=== PATIENT | male | born 1950 | race Caucasian/White ===

== ENCOUNTER 2016-12-08 06:20 | Emergency (ER) | payer OTHER ==
[~2016-12-08] VITALS: Ht 172.7 cm; Wt 106.6 kg
[~2016-12-08 06:20] MED LIST: AMOXICILLIN500 M2 PO; ASPIRIN EC81 M1 PO; ATORVASTATIN CA80 M1 PO; LEVOTHYROXINE200 MC1 PO; LIOTHYRONINE SO5 MC1 PO; LORAZEPAM1 M1 PO; METFORMIN HCL500 M4 PO; METOPROLOL TART25 M1 PO; NORVASC2.5 M1 PO; NORVASC5 M1 PO; SERTRALINE HCL25 MG PO; VALACYCLOVIR500 M1 PO; VIAGRA100 M1 PO; VITAMIN C1000 M4 PO; VITAMIN D1000 UNIT PO
--- NOTE | 2016-12-08 06:41 | ED GI/GU/ABDOMINAL COMPLAINT ---
History of Present Illness General Chief Complaint: Abdominal Pain/Flank Pain Stated Complaint: "I THINK I MIGHT BE HAVING KIDNEY STONE" Source: patient, old records Exam Limitations: no limitations Vital Signs & Intake/Output Vital Signs & Intake/Output Vital Signs Date Time Temp Pulse Resp B/P Pulse O2 O2 Flow FiO2 Ox Delivery Rate 12/08 0902 98.0 82 18 134/73 97 Room Air 12/08 0631 98 Room Air 12/08 0626 97.9 80 18 153/92 98 Room Air Allergies Coded Allergies: niacin (RASH, HIVES ALL OVER BACK 03/18/16) Triage Note: PT FROM HOME C/O LEFT SIDED FLANK PAIN. PT STATES " JOSE ELIAS HAD KIDNEY STONES IN THE PAST AND I BELIEVE I AM HAVING THEM NOW. THE PAIN STARTED AT 2300 LAST NIGHT AND HAS BEEN A CONSTANT LEFT SIDED SHARP STABBING PAIN, I GOT NO SLEEP." PT IS NAUSEOUS, -VOMITTING -DIRRAREHA Triage Nurses Notes Reviewed? yes HPI: PT PRESENTS WITH LEFT FLANK PAIN RADIATING TO HIS GROIN THAT STARTED LAST NIGHT. THE PAIN IS COLIKY IN NATURE AND CONSTANT. 10 OUT OF 10. POSITIVE NAUSEA. NO AGGRIVAING OR MITIGATING FACTORS. SIMILAR SYMPTOMS IN THE PAST FROM KIDNEY STONES. PT CAN NOT FIND A POSITION OF COMFORT. (DERRICK SHER,SU Villarreal) Reconcile Medications Amlodipine Besylate (Norvasc) 5 MG TABLET 1 TAB PO DAILY BP (Reported) Amoxicillin 500 MG CAPSULE 4 CAP PO AD PRN PRIOR TO DENTAL APPT (Reported) Aspirin (Ecotrin*) 81 MG TABLET.DR 1 TAB PO BID HEART/BLOOD (Reported) Atorvastatin Calcium 80 MG TABLET 1 TAB PO DAILY CHOLESTEROL (Reported) Cholecalciferol (Vitamin D3) (Vitamin D) 1,000 UNIT TABLET 1 TAB PO DAILY SUPPLEMENT (Reported) Levothyroxine Sodium 200 MCG TABLET 1 TAB PO DAILY AC THYROID (Reported) Lorazepam 1 MG TABLET 1 TAB PO QHS SLEEP (Reported) Metformin HCl (Metformin HCl ER) 500 MG TAB.ER.24H 1 TAB PO DAILY PRE-DIABETES (Reported) Metoprolol Tartrate 25 MG TABLET 1 TAB PO BID HEART/BP (Reported) Sertraline HCl 25 MG TABLET 1 TAB PO DAILY MENTAL HEALTH (Reported) Valacyclovir HCl (Valacyclovir) 500 MG TABLET 1 TAB PO DAILY COLD SORES ( Reported) (CAITIE SHER,SAVAGE) Past History Travel History Traveled to [place] past 21 day No Medical History Any Pertinent Medical History? see below for history Neurological: NONE EENT: NONE Cardiovascular: hypertension, hyperlipidemia Respiratory: NONE Gastrointestinal: NONE Hepatic: NONE Renal: KIDNEY STONES Musculoskeletal: NONE Psychiatric: NONE Endocrine: hypothyroidism Blood Disorders: NONE Cancer(s): NONE Surgical History Surgical History: non-contributory Psychosocial History What is your primary language Moh[place] Tobacco Use: Never used ETOH Use: denies use Illicit Drug Use: denies illicit drug use Family History Hx Contributory? No (DERRICK SHER,SU Villarreal) Review of Systems Review of Systems Constitutional: Reports: no symptoms. EENTM: Reports: no symptoms. Respiratory: Reports: no symptoms. Cardiovascular: Reports: no symptoms. GI: Reports: no symptoms. Genitourinary: Reports: no symptoms. Musculoskeletal: Reports: see HPI, back pain. Skin: Reports: no symptoms. Neurological/Psychological: Reports: no symptoms. Hematologic/Endocrine: Reports: no symptoms. Immunologic/Allergic: Reports: no symptoms. All Other Systems: Reviewed and Negative (DERRICK SHER,SU Villarreal) Physical Exam Physical Exam General Appearance: well developed/nourished, alert, awake, anxious, severe distress Head: atraumatic, normal appearance Eyes: Bilateral: PERRL, EOMI. Ears, Nose, Throat, Mouth: hearing grossly normal Neck: normal inspection, supple, full range of motion Respiratory: normal breath sounds, chest non-tender, no respiratory distress, lungs clear Cardiovascular: regular rate/rhythm, normal peripheral pulses Gastrointestinal: normal bowel sounds, soft, no organomegaly, tenderness (LLQ) Back: CVA tenderness (L) Extremities: normal range of motion Neurologic/Psych: no motor/sensory deficits, awake, alert, oriented x 3, normal gait, normal mood/affect Skin: intact, normal color, warm/dry Core Measures ACS in differential dx? No Severe Sepsis Present: No Septic Shock Present: No (SU MEZA MD) Progress Differential Diagnosis: ureterolithiasis, urinary retention Plan of Care: Orders Procedure Date/time Status URINALYSIS 12/08 06 Complete COMPREHENSIVE METABOLIC PANEL 12/08 06 Complete CBC WITHOUT DIFFERENTIAL 12/08 634 Complete Laboratory Tests 12/08/16 0724: Urinalysis LIGHT H, Urine Color YEL, Urine Clarity CLEAR, Urine pH 6.0, Ur Specific [place] 1.025, Urine Protein NEG, Urine Ketones NEG, Urine Nitrite NEG, Urine Bilirubin NEG, Urine Urobilinogen 0.2, Ur Leukocyte Esterase NEG, Ur Microscopic SEDIMENT EXAMINED, Urine RBC 10-15 H, Urine WBC 1-3 H, Urine Mucus FEW, Urine Hemoglobin LARGE H, Urine Glucose NEG 12/08/16 0645: Anion Gap 13, Estimated GFR > 60, BUN/Creatinine Ratio 21.4, Glucose 116 H, Calcium 9.8, Total Bilirubin 1.0, AST 21, ALT 26, Alkaline Phosphatase 107, Total Protein 7.4, Albumin 4.5, Globulin 2.9, Albumin/Globulin Ratio 1.6, CBC w Diff NO MAN DIFF REQ, RBC 4.91, MCV 89.2, MCH 30.6, RDW 13.0, MPV 7.5, Gran % 78.1 H, Lymphocytes % 13.9 L, Monocytes % 6.8, Eosinophils % 0.7, Basophils % 0.5, Absolute Granulocytes 7.8 H, Absolute Lymphocytes 1.4, Absolute Monocytes 0.7 H, Absolute Eosinophils 0.1, Absolute Basophils 0, PUBS MCHC 34.3 Initial ED EKG: none Hand-Off Endorsed To: SAVAGE BLOOD MD Endorsed Time: 0700 Pending: CT, labs (DERRICK SHER,SU Villarreal) Diagnostic Imaging: Viewed by Me: CT Scan. Discussed w/RAD: CT Scan. Radiology Impression: 1. Minimal left-sided hydroureteronephrosis with a tiny left ureterovesicular junction stone. 2. Otherwise there is no evidence of urolithiasis. 3. Small hepatic and renal cysts. 4. Cholelithiasis versus hyperdense sludge. 5. Mild splenomegaly. 6. Moderately enlarged prostate. (SAVAGE BLOOD MD) Departure Departure Disposition: HOME OR SELF CARE Condition: Stable Departure Forms: Customer Survey General Discharge Information (SU MEZA MD) Departure Time of Disposition: 914 Clinical Impression Primary Impression: Renal colic on left side Secondary Impressions: Left flank pain Referrals: IVONNE SHER,JORDI ALEXANDER MD,RAMANDEEP (PCP/Family) Prescriptions: Current Visit Scripts Tamsulosin HCl (Flomax) 1 CAP PO DAILY #15 CAP Ibuprofen 1 TAB PO Q6PRN PRN pain #50 TAB with food Oxycodone HCl/Acetaminophen (Percocet 5-325 MG Tablet) 1-2 TAB PO Q6P PRN severe pain #15 TAB (CAITIE SHER,SAVAGE)
[2016-12-08 06:54] LABS: ABSOLUTE BASOPHIL COUNT 0 /CUMM (0.0-0.2); ABSOLUTE EOSINOPHIL COUNT 0.1 /CUMM (0.0-0.7); ABSOLUTE GRANULOCYTE CT 7.8 /CUMM (1.4-6.5); ABSOLUTE LYMPH COUNT 1.4 /CUMM (1.2-3.4); ABSOLUTE MONOCYTE COUNT 0.7 /CUMM (0.10-0.60); BASOPHIL % 0.5 % (0.0-2.0); EOSINOPHIL % 0.7 % (0-5); GRANULOCYTE % 78.1 % (42.2-75.2); HEMATOCRIT 43.8 % (42-52); MEAN CORPUSCULAR HGB 30.6 PG (27.0-31.0); MEAN CORPUSCULAR HGB CONC 34.3 G/DL (33.0-37.0); MEAN CORPUSCULAR VOLUME 89.2 FL (80.0-94.0); MEAN PLATELET VOLUME 7.5 FL (7.4-10.4); PLATELET COUNT 309 /CUMM (130-400); RED BLOOD CELL CT 4.91 /CUMM (4.70-6.10)
--- NOTE | 2016-12-08 08:43 | CT SCAN REPORT ---
EXAMINATION: CT ABDOMEN AND PELVIS WITHOUT CONTRAST CLINICAL INFORMATION: Left-sided flank pain, question urolithiasis. COMPARISON: None. TECHNIQUE: Multidetector volumetric imaging was performed from the superior aspect of the liver through the pubic symphysis. Sagittal and coronal reformatted images were obtained on the technologist's workstation. DLP: 1158 mGy-cm. FINDINGS: LUNG BASES: Mildly hyperexpanded with dependent atelectasis, there is a single under 5 mm calcified granuloma laterally in the right middle lobe. No suspicious pulmonary nodules are seen. There is a subtle mosaic perfusion pattern suggesting small airway disease. LIVER, GALLBLADDER, AND BILIARY TREE: There is a single small cyst superiorly in the right lobe of the liver posteriorly and laterally. The liver is otherwise normal in size, shape, and attenuation. No focal hepatic lesion or biliary ductal dilatation is present. There is a small amount of hyperdense material identified dependently in the gallbladder, hyperdense sludge or tiny calculi. There is no evidence of acute cholecystitis. PANCREAS: Unremarkable. SPLEEN: Mildly enlarged at 15 cm maximal dimension. ADRENAL GLANDS: Unremarkable. KIDNEYS AND URETERS: There are 2 mid pole left renal cysts, and a single mid pole right renal cyst, the largest on the right side measures 1.5 cm maximal dimension. There is no evidence of nephrolithiasis, however there is mild perinephric stranding bilaterally, left side greater than right. There is very subtle prominence of the left-sided collecting system and ureter with a tiny under 3 mm left ureterovesicular junction calculus. BLADDER: Unremarkable. Prostate is moderately enlarged. GASTROINTESTINAL TRACT: Unremarkable including a normal-appearing appendix. ABDOMINAL WALL: Intact without evidence of underlying hernia. There are herniorrhaphy changes in the left inguinal region. LYMPH NODES: There is no evidence of lymphadenopathy. VASCULAR: Mild atherosclerotic aortic calcification and coronary calcification. PELVIC VISCERA: As noted above. OSSEOUS STRUCTURES: No focal destructive or sclerotic osseous lesions. There are moderate facet degenerative changes at the lumbosacral junction. IMPRESSION: 1. Minimal left-sided hydroureteronephrosis with a tiny left ureterovesicular junction stone. 2. Otherwise there is no evidence of urolithiasis. 3. Small hepatic and renal cysts. 4. Cholelithiasis versus hyperdense sludge. 5. Mild splenomegaly. 6. Moderately enlarged prostate.
[2016-12-08 09:02] VITALS: BP 134/73
[2016-12-08] MEDS ORDERED: FLOMAX0.4 M1 PO (09:18)
[2016-12-08] MEDS ORDERED: IBUPROFEN600 M1 PO (09:18)
[2016-12-08] MEDS ORDERED: PERCOCET 5-3251 EACH PO (09:18)
== END 2016-12-08 09:23 ==
LOC: ERH 06:20
PROVIDERS: Emergency Medicine
DX: N23 Unspecified renal colic (principal); R10.9 Unspecified abdominal pain
CPT/HCPCS: 74176; 81001; 96374; 96375; J1885; J2405